=== PATIENT | male | born 1970 | race Caucasian/White ===

== ENCOUNTER 2022-03-10 01:44 | Emergency (ER) | payer OTHER, SELFPAY ==
[2022-03-10] VITALS (13 sets, daily range): BP systolic 122–134; BP diastolic 64–86; PULSE 56–69; RESP 16–20; TEMP 36.7; O2SAT 92–99; BMI 25.4
--- NOTE | 2022-03-10 01:51 | DI.RAD.S_ITS ---
PROCEDURE: XR KNEE RT 3V INDICATIONS: pain TECHNIQUE: 3 views of the knee were acquired. COMPARISON: None. FINDINGS: Bones: No fractures or dislocations. No suspicious bony lesions. Soft tissues: Moderate joint effusion. No suspicious soft tissue calcifications. IMPRESSION: Moderate joint effusion. No fracture or dislocation. Note: Final report is concordant with preliminary interpretation by [email or web address] [facility] Approved by: Rashaun Bundy M.D. on 03/10/2022 at 8:01
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
--- NOTE | 2022-03-10 02:08 | DI.CT.S_ITS ---
PROCEDURE: CT LE RT WO CON INDICATIONS: trauma TECHNIQUE: Helical axial CT of the knee was obtained without intravenous contrast and reformatted in multiple planes. Radiation dose reduction was achieved utilizing automated exposure control and/or weight-based dosing. COMPARISON: None. FINDINGS: Normal bone mineralization. No evidence of fracture or lytic lesion. Mild degenerative joint space narrowing and subchondral cysts associated with the medial tibial plateau. A moderate joint effusion noted. Prepatellar soft tissue edema noted as well. Otherwise, muscular and fascial planes are well maintained. IMPRESSION: 1. Prepatellar soft tissue swelling without evidence of fracture or lytic lesion. 2. Moderate joint effusion Note: Final report is concordant with preliminary interpretation by [employer] Approved by: Rashaun Bundy M.D. on 03/10/2022 at 8:10
[2022-03-10] MEDS: fentaNYL 100 MCG/2 ML INJ 115 MCG IV ×2 (02:12→03:06)
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
[2022-03-10] MEDS: KETAMINE 500 MG/5 ML INJ 70 MG IV (02:14)
[2022-03-10] MEDS: KETAMINE 500 MG/5 ML INJ 50 MG IV (03:07)
--- NOTE | 2022-03-10 03:23 | DI.MRI.S_ITS ---
PROCEDURE: MR KNEE RT WO CON INDICATIONS: trauma TECHNIQUE: Noncontrast sagittal PD fast spin echo and T2 fast spin echo with fat saturation, sagittal 3-D FLASH with fat saturation; coronal T1 spin echo and PD fast spin echo with fat saturation, and axial PD fast spin echo with fat saturation through the knee. COMPARISON: None. FINDINGS: Image quality: Study limited by motion artifact Menisci: Intrasubstance signal involving the posterior horns of the medial and lateral menisci reflect mucoid degeneration. No evidence of tear or displacement. Cruciate ligaments: Posterior cruciate ligament intact. ACL intrasubstance signal and edema consistent with strain without full-thickness tear or retraction. Medial structures: The medial collateral ligament appears intact. The posterior oblique ligament, semimembranosus tendon insertions, oblique popliteal ligament, and meniscocapsular junction appear intact. Visualized portions of the pes anserinus tendons appear normal. No abnormal bursal fluid. Medial and lateral ligamental structures difficult to fully assess due to significant motion artifact, however, appear grossly intact. Bones and cartilage: Bone marrow edema in the medial tibial plateau posteriorly as well as the medial aspect of the lateral tibial plateau near the insertion of the ACL. No evidence of fracture. Subchondral cyst present anteriorly Joint space: Moderate joint effusion. No Antonio's cyst. Normal appearing synovial plicae are incidentally noted. IMPRESSION: 1. ACL strain without evidence of full-thickness tear or retraction. 2. Bone contusion in the medial and lateral tibial plateau without evidence of fracture. 3. Moderate joint effusion Approved by: Rashaun Bundy M.D. on 03/10/2022 at 8:34
[2022-03-10] MEDS: ACETAMINOPHEN 325 MG TABLET 975 MG PO (03:49)
[2022-03-10] MEDS: KETOROLAC 30 MG/ML VIAL IV (03:49)
== END 2022-03-10 10:12 | disposition home or self-care (01) ==
PROVIDERS: Emergency Provider Emergency Medicine
DX: M23.91 Unspecified internal derangement of right knee (principal); V92.09XA Drowning and submersion due to fall off unspecified watercraft, initial encounter
CPT/HCPCS: 73562; 73700; 73721; 96374; 96375; 99284; 99285; J1885; J3010